=== PATIENT | female | born 1945 | race Caucasian/White ===

== ENCOUNTER 2019-10-28 18:53 | Emergency (ER) | payer OTHER ==
[~2019-10-28] VITALS: Ht 170.2 cm; Wt 70.3 kg
[2019-10-28] MEDS ORDERED: LEVO-T75 MCG PO (19:41)
[2019-10-28] MEDS ORDERED: LEXAPRO20 MG PO (19:41)
[2019-10-28] MEDS ORDERED: FAMCICLOVIR250 MG PO (19:52)
[2019-10-28] MEDS ORDERED: VIBRAMYCIN 100100 M2 PO (19:52)
[2019-10-28 20:33] VITALS: BP 132/70
[2019-10-28] MEDS ORDERED: CLEOCIN HCL300 MG PO (23:47)
[2019-10-29] MEDS ORDERED: PREDNISONE 20 M20 M1 PO (00:19)
[2019-11-01 10:06] LABS: HSV 1 DNA Negative (Negative); HSV 2 DNA Positive (Negative)
== END 2019-10-28 20:34 | disposition home or self-care (01) ==
LOC: M.ERS 18:53
PROVIDERS: Emergency Medicine
DX: L03.221 Cellulitis of neck (principal); Z20.828 Contact with and (suspected) exposure to other viral communicable diseases; Z88.2 Allergy status to sulfonamides

== ENCOUNTER 2019-10-28 22:00 | Emergency (ER) | payer OTHER ==
[~2019-10-28] VITALS: Ht 170.2 cm; Wt 70.3 kg
[~2019-10-28 22:00] MED LIST: FAMCICLOVIR250 MG PO; LEVO-T75 MCG PO; LEXAPRO20 MG PO; VIBRAMYCIN 100100 M2 PO
[2019-10-28 22:41] LABS: ABSOLUTE MONOCYTES 0.4 thou/uL (0.0-1.2); HEMOGLOBIN 14.6 gm/dL (12.0-15.0); WBC 4.9 thou/uL (4.0-11.0)
[2019-10-28 22:43] LABS: ABSOLUTE EOSINOPHILS 0.1 thou/uL (0.0-0.7); ABSOLUTE LYMPHOCYTES 1.6 thou/uL (0.8-5.3); ABSOLUTE NEUTROPHILS 2.7 thou/uL (1.6-8.1); BASOPHILS 0.5 %; EOSINOPHILS 2.8 %; HEMATOCRIT 42.7 % (37.0-47.0); MCH 30.4 pg (26.0-34.0); MCHC 34.1 g/dL (28.0-37.0); MCV 89.2 fL (80.0-100.0); MONOCYTES 8.6 %; MPV 8.5 fl. (7.2-11.1); NUCLEATED RBCS 0 /100WBC; PLATELET COUNT* 179 thou/uL (150-400); POLYS 56.1 %; RBC 4.78 mil/uL (4.20-5.00); RDW-CV 13.8 % (10.5-14.5)
[2019-10-28 22:58] LABS: CALCIUM 8.6 mg/dL (8.5-10.1); CREATININE 1.2 mg/dL (0.6-1.3); POTASSIUM 3.8 mmol/L (3.5-5.1)
[2019-10-28 23:03] LABS: ALBUMIN 3.7 g/dL (3.4-5.0); TOTAL BILIRUBIN 0.6 mg/dL (<0.1-1.0); TOTAL PROTEIN 7.6 g/dL (6.4-8.2)
[2019-10-28 23:42] LABS: URINE BILIRUBIN NEGATIVE (Negative); URINE BLOOD TRACE (Negative); URINE CLARITY CLEAR; URINE COLOR YELLOW; URINE GLUCOSE-RANDOM NEGATIVE (Negative); URINE KETONES NEGATIVE (Negative); URINE LEUKOCYTES-REFLEX 1+ (Negative); URINE NITRITE-REFLEX NEGATIVE (Negative); URINE PROTEIN NEGATIVE (Negative); URINE UROBILINOGEN 0.2 E.U./dl (0.2-1.0)
[2019-10-28] MEDS ORDERED: CLEOCIN HCL300 MG PO (23:47)
[2019-10-29 00:05] LABS: BACTERIA-REFLEX 1-9 Few /HPF (None Seen); CASTS None Seen /LPF (None Seen); SQUAMOUS 4-10 Moderate /LPF (0-3); URINE RBC 0-2 Rare /HPF (0-2)
[2019-10-29 00:06] LABS: CRYSTALS None Seen /LPF (None Seen); URINE WBC-REFLEX 0-5 Rare /HPF (0-5)
[2019-10-29] MEDS ORDERED: PREDNISONE 20 M20 M1 PO (00:19)
[2019-10-29 00:36] VITALS: BP 116/58
== END 2019-10-29 00:39 | disposition home or self-care (01) ==
LOC: M.ERS 22:00
PROVIDERS: Emergency Medicine
DX: R10.11 Right upper quadrant pain (principal); T36.4X5A Adverse effect of tetracyclines, initial encounter; R11.0 Nausea; L03.221 Cellulitis of neck; E03.9 Hypothyroidism, unspecified; Z88.2 Allergy status to sulfonamides; Z79.899 Other long term (current) drug therapy; Y92.89 Other specified places as the place of occurrence of the external cause

== ENCOUNTER → 2020-09-14 | Outpatient (CLI) | payer OTHER ==
[~2020-09-14] MED LIST changes: +CLEOCIN HCL300 MG PO; +PREDNISONE 20 M20 M1 PO
== END ==
LOC: M.ULTRA 10:48
PROVIDERS: ATTEND Specialist
DX: R22.1 Localized swelling, mass and lump, neck (principal)

== ENCOUNTER → 2020-12-14 | Outpatient (CLI) | payer OTHER | LOC: M.ULTRA 11:46 | PROVIDERS: ATTEND Family Medicine | DX: M79.605 Pain in left leg (principal); M25.562 Pain in left knee ==

== ENCOUNTER 2021-03-11 14:00 | Inpatient (IN) | payer OTHER ==
[~2021-03-11] VITALS: Ht 170.2 cm; Wt 71.2 kg
[2021-03-11 14:11] VITALS: BP 160/69
[2021-03-11 14:18] LABS: ABSOLUTE BASOPHILS 0.1 thou/uL (0.0-0.2); ABSOLUTE EOSINOPHILS 0.1 thou/uL (0.0-0.7); ABSOLUTE LYMPHOCYTES 0.8 thou/uL (0.8-5.3); ABSOLUTE MONOCYTES 0.4 thou/uL (0.0-1.2); BASOPHILS 0.7 %; EOSINOPHILS 0.9 %; HEMATOCRIT 41.9 % (37.0-47.0); HEMOGLOBIN 14.2 gm/dL (12.0-15.0); LYMPHOCYTES 9.8 %; MCH 29.9 pg (26.0-34.0); MCHC 33.8 g/dL (28.0-37.0); MCV 88.6 fL (80.0-100.0); MONOCYTES 4.6 %; MPV 8.7 fl. (7.2-11.1); NUCLEATED RBCS 0 /100WBC; PLATELET COUNT* 182 thou/uL (150-400); RBC 4.73 mil/uL (4.20-5.00); RDW-CV 12.7 % (10.5-14.5); WBC 8.3 thou/uL (4.0-11.0)
[2021-03-11 14:33] LABS: CALCIUM 8.5 mg/dL (8.5-10.1); CREATININE 0.6 mg/dL (0.6-1.3); POTASSIUM 5.2 mmol/L (3.5-5.1)
[2021-03-11 14:37] LABS: ALBUMIN 3.6 g/dL (3.4-5.0); TOTAL BILIRUBIN 0.9 mg/dL (<0.1-1.0); TOTAL PROTEIN 7.4 g/dL (6.4-8.2)
--- NOTE | 2021-03-11 14:37 | EKG ---
[place] [address] ELECTROCARDIOGRAM REPORT Name: ELENIANGELITO MARIAH Room: [facility]#: [id number] Admission: 03/11/21 Attend Phys: Discharge: Date of : 43 Date of Service: 03/11/211420 Report #: [id number] THIS REPORT FOR: //name// [facility] ED Test Date: 2021-03-11 Test Time: 14:21:11 Pat Name: ANGELITO KNOWLES Department: Room: Gender: Hr Clerk: : 1945 Requested By: Amandeep Jackman Order Number: [id number] MD: Dread Narvaez Measurements Intervals [place] Rate: 79 P: 82 VT: 179 QRS: 42 QRSD: 81 T: 71 QT: 397 QTc: 456 Interpretive Statements Sinus rhythm No previous ECG available for comparison Electronically Signed On 03-11-2021 14:36:47 [employer] by Dread Narvaez [email or web address] <ELECTRONICALLY SIGNED> By: Dread Narvaez MD, [facility] 03/11/21 143 20 1421 Dread Narvaez MD, FACC /EPI
[2021-03-11 14:44] LABS: INFLUENZA A ANTIGEN Negative (Negative)
[2021-03-11 18:17] VITALS: BP 130/58
[2021-03-11] MEDS ORDERED: OTHER MISCELL (18:44)
[2021-03-11 18:45] VITALS: BP 120/45
[2021-03-11 20:00] VITALS: BP 118/45
[2021-03-12 00:09] VITALS: BP 115/46
[2021-03-12 04:32] VITALS: BP 116/51
--- NOTE | 2021-03-12 07:09 | NUR ---
pt stable. continue on RA. up to bathroom independently. remains free from injury. vitals wnl. denies pain. fluids continue to infuse
[2021-03-12 08:00] VITALS: BP 131/60
[2021-03-12 12:00] VITALS: BP 124/55
[2021-03-12 14:56] VITALS: BP 124/55
[2021-03-12 16:00] VITALS: BP 135/57
--- NOTE | 2021-03-12 16:39 | NUR ---
PT LEFT THE UNIT AT 1630 WITH TECH VIA WHEELCHAIR AND WAS PICKED UP BY HER SON. PT WAS GIVEN D/C INSTRUCTIONS AT 1515. PT SAID SHE UNDERSTOOD. STRESSED TO PT THAT HER AND HER SON WHO SHE WAS AROUND WHILE SYMPTOMATIC AND LIVES WITH NEED TO QUARANTINE UNTIL MARCH 21. THIS DATE IS 10 DAYS FROM HER POSITIVE COVID TEST. IV WAS REMOVED. D/C PAPERS WERE GIVEN TO PT. NO SCRIPTS WERE GIVEN. VSS. PT IS STABLE AND APPROPRIATE FOR D/C. NO SIGNS OF ACUTE DISTRESS OR OTHER NEEDS DETERMINED AT THIS TIME.
== END 2021-03-12 16:30 | disposition home or self-care (01) | DRG 179 ==
LOC: M.ERS 14:00 → M.TBA-ER 15:07 → M.ORTHSURG 18:17
PROVIDERS: Emergency Medicine Emergency Medical Services; ADMIT Internal Medicine; ATTEND Internal Medicine
DX: U07.1 COVID-19 (principal); E03.9 Hypothyroidism, unspecified; J10.1 Influenza due to other identified influenza virus with other respiratory manifestations; Z88.2 Allergy status to sulfonamides; Z88.8 Allergy status to other drugs, medicaments and biological substances; Z79.899 Other long term (current) drug therapy

== ENCOUNTER 2021-04-19 18:35 | Emergency (ER) | payer OTHER ==
[~2021-04-19] VITALS: Ht 170.2 cm; Wt 70.3 kg
[~2021-04-19 18:35] MED LIST changes: +OTHER MISCELL
[2021-04-19 19:31] LABS: URINE BILIRUBIN NEGATIVE (Negative); URINE BLOOD NEGATIVE (Negative); URINE CLARITY CLEAR; URINE COLOR YELLOW; URINE GLUCOSE-RANDOM NEGATIVE (Negative); URINE KETONES TRACE (Negative); URINE LEUKOCYTES 1+ (Negative); URINE NITRITE NEGATIVE (Negative); URINE PROTEIN NEGATIVE (Negative); URINE UROBILINOGEN 0.2 E.U./dl (0.2-1.0)
[2021-04-19 19:40] LABS: BACTERIA 1-9 Few /HPF (None Seen); SQUAMOUS 4-10 Moderate /LPF (0-3); URINE RBC 0-2 Rare /HPF (0-2); URINE WBC 0-5 Rare /HPF (0-5)
[2021-04-19 19:41] LABS: INFLUENZA A ANTIGEN Negative (Negative); INFLUENZA B ANTIGEN Negative (Negative)
[2021-04-19 19:41] LABS: CASTS None Seen /LPF (None Seen); CRYSTALS None Seen /LPF (None Seen)
[2021-04-19] MEDS ORDERED: CEPHALEXIN500 MG PO (19:56)
[2021-04-19] MEDS ORDERED: TESSALON PERLE100 MG PO (20:07)
[2021-04-19 20:15] VITALS: BP 128/65
== END 2021-04-19 20:17 | disposition home or self-care (01) ==
LOC: M.ERS 18:35
PROVIDERS: Physician Assistant
DX: N39.0 Urinary tract infection, site not specified (principal); R05.9 Cough, unspecified; U09.9 Post COVID-19 condition, unspecified; E03.9 Hypothyroidism, unspecified; Z79.899 Other long term (current) drug therapy; Z88.2 Allergy status to sulfonamides; Z88.8 Allergy status to other drugs, medicaments and biological substances; Z98.82 Breast implant status